=== PATIENT | male | born 1985 | race Hispanic/Latino ===

== ENCOUNTER 2025-03-18 15:39 | Emergency (ER) | payer OTHER ==
[~2025-03-18] VITALS: Ht 167.6 cm; Wt 61.2 kg
[2025-03-18] MEDS: ZIPRASIDONE MESYLATE 20 MG/VIAL IM ONE (16:45)
[2025-03-18 16:47] LABS: IMMATURE GRANULOCYTE ABSOLUTE 0.09 K/uL (0-1); NUCLEATED RED BLOOD CELLS 0.0 % (0.0-0.19); PLATELET COUNT (AUTO) 461 K/uL (130-400); RED BLOOD CELL COUNT(AUTO) 4.33 MIL/uL (4.50-6.20); RED CELL DISTRIBUTION WIDTH 13.4 % (11.0-15.5); WHITE BLOOD COUNT (AUTO) 18.1 K/uL (4.8-10.8)
[2025-03-18 16:57] LABS: CREATININE 1.1 mg/dL (0.5-1.3); GLOMERULAR FILTR. RATE CALC 88 mL/min (>90); GLUCOSE,RANDOM 124 mg/dL (70-105); SODIUM SERUM 142 mmol/L (136-145); UREA NITROGEN, BLOOD 9 mg/dL (7-18)
[2025-03-18 17:02] LABS: ALCOHOL, BLOOD 18 mg/dL (0-10); CREATINE KINASE, TOTAL 238 U/L (21-232)
[2025-03-18 17:29] LABS: ADD UA MICROSCOPIC YES; APPEARANCE,URINE CLEAR (CLEAR); GLUCOSE, URINE (UA) NEGATIVE (NEGATIVE); LEUKOCYTE ESTERASE ,URINE NEGATIVE Leu/uL (NEGATIVE); NITRATE,URINE NEGATIVE (NEGATIVE); OCCULT BLOOD,URINE NEGATIVE (NEGATIVE)
--- NOTE | 2025-03-18 17:32 | ERN ---
General Chief Complaint: Suicidal Ideation Stated Complaint: PSYCHOSIS AND SUICIDAL IDEATION Time Seen by MD: 15:42 Source: patient History of Present Illness Initial Comments Patient is a 39-year-old gentleman with a extensive psychiatric history coming in due to suicidal ideation. Per patient he does not have a plan but he is here for further evaluation. Allergies: Coded Allergies: No Known Drug Allergies (Unverified Allergy, Unknown, 03/18/25) Past Medical History Past Medical History: Schizophrenia Past Surgical History: None ROS Dictation CONSTITUTIONAL: No chills, no fever, no weakness, no diaphoresis, no malaise. HEAD/FACE: No signs of trauma. EENT: No eye pain, no blurred vision, no tearing, no double vision, no ear pain, no ear discharge, no nose pain, no nasal congestion, no throat pain, no throat swelling, no mouth pain. RESPIRATORY: No cough, no orthopnea, no SOB, no stridor, no wheezing. CARDIOVASCULAR: No chest pain, no edema, no palpitations, no syncope. GASTROINTESTINAL/ABDOMINAL: No abdominal pain, no constipation, no diarrhea, no nausea, no vomiting. GENITOURINARY: No abnormal discharge, no dysuria, no frequent urination, no hematuria. No complaints of pain in the genitals. MUSCULOSKELETAL: No back pain, no gout, no joint pain, no joint swelling, no muscle pain, no muscle stiffness, no neck pain. INTEGUMENTARY: No change in color, no change in hair/nails, no dryness, no lesion, no lumps, no rash. NEUROLOGICAL/PSYCH: No anxiety, not depressed, no emotional problem, no headache, no numbness, no pre-existing deficit, no history of seizures, no tremors, no weakness. HEMATOLOGIC/LYMPHATIC: Not anemic, no history of blood clots, no apparent bleeding, no bruising, glands not swollen. All Systems Negative, Except as Noted. Physical Exam Physical Exam Dictation VITAL SIGNS: Reviewed. GENERAL APPEARANCE: Alert, oriented x3, no acute distress, obese. HEAD AND FACE: Non-traumatic. EYES: PERRL, pink conjunctivas, eyelid no trauma, anterior chamber clear. EARS: Pinnas intact and no signs of trauma or erythema. Ear canals clear and no discharge. TMs no erythema. NOSE: No discharge, no bleeding. OROPHARYNX: Mouth normal, teeth no caries, tongue pink. Pharynx clear, no erythema. Tonsils no exudates, no abscesses noted. Mucous membrane moist. NECK: Supple, non-tender, no thyromegaly, no masses, no JVD, no bruits. BREAST: Deferred. CHEST: No tenderness, no crepitus, no paradoxical movement, no retractions. LUNGS: Clear, well-ventilated, symmetric, no rales, no wheezing, no rhonchi, no stridor, good breath sounds bilaterally. HEART: Regular rate, regular rhythm, no murmur, no gallops. VASCULAR: No peripheral edema. ABDOMEN: Soft, positive bowel sounds, nondistended, no guarding, nontender, no rebound, no masses no hepatomegaly, no splenomegaly, no Ledezma's sign, no hernias. RECTAL: Deferred. GENITAL: Deferred. NEUROLOGICAL: Normal speech, gross motor function intact, gross sensory function intact. MUSCULOSKELETAL: Neck nontender, full range of motion, back nontender, full range of motion. EXTREMITIES: Nontender, full range of motion. SKIN: Color pink, dry, no turgor, no rash, no lacerations, no abrasions, no contusions. LYMPHATICS: Deferred. Results Laboratory and Microbiology Lab and Micro Result Laboratory Tests Test 03/18/25 16:00 03/18/25 16:36 Urine Color LIGHT-YELLOW (YELLOW) Urine Appearance CLEAR (CLEAR) Urine pH 6.5 (5.0-8.0) Urine Specific [place] 1.016 (1.001-1.031) Urine Protein 10 mg/dL (NEGATIVE) H Urine Glucose (UA) NEGATIVE mg/dL (NEGATIVE) Urine Ketones NEGATIVE mg/dL (NEGATIVE) Urine Occult Blood NEGATIVE (NEGATIVE) Urine Nitrate NEGATIVE (NEGATIVE) Urine Bilirubin NEGATIVE mg/dL (NEGATIVE) Urine Urobilinogen 0.2 mg/dL (0.2-1.0) Urine Leukocyte Esterase NEGATIVE Rigoberto/uL Urine RBC 0-1 /HPF (0-1) Urine WBC 0-1 /HPF (0-1) Urine Squamous Epithelial Cells RARE /HPF (0-2) Urine Bacteria RARE /HPF (None Seen) Urine Opiates Screen NEGATIVE (NEGATIVE) Urine Barbiturates Screen NEGATIVE (NEGATIVE) Urine Phencyclidine Screen NEGATIVE (NEGATIVE) Urine Amphetamines Screen NEGATIVE (NEGATIVE) Urine Benzodiazepines Screen NEGATIVE (NEGATIVE) Urine Cocaine Screen POSITIVE (NEGATIVE) H Urine Marijuana (THC) Screen NEGATIVE (NEGATIVE) White Blood Count 18.1 K/uL (4.8-10.8) H Red Blood Count 4.33 MIL/uL (4.50-6.20) L Hemoglobin 12.4 g/dL (14.0-18.0) L Hematocrit 37.8 % (42-54) L Mean Corpuscular Volume 87.3 fL (79-99) Mean Corpuscular Hemoglobin 28.6 pg (27.0-33.0) Mean Corpuscular Hemoglobin Concent 32.8 g/dL (32.0-36.0) Red Cell Distribution Width 13.4 % (11.0-15.5) Platelet Count 461 K/uL (130-400) H Mean Platelet Volume 10.1 fL (7.5-10.5) Immature Granulocyte % (Auto) 0.5 % (0-1) Neutrophils (%) (Auto) 89.8 % (40.0-77.0) H Lymphocytes (%) (Auto) 4.5 % (21.0-51.0) L Monocytes (%) (Auto) 4.7 % (3.0-13.0) Eosinophils (%) (Auto) 0.2 % (0.0-8.0) Basophils (%) (Auto) 0.3 % (0.0-5.0) Neutrophils # (Auto) 16.3 K/uL (1.8-7.7) H Lymphocytes # (Auto) 0.8 K/uL (1.0-4.8) L Monocytes # (Auto) 0.9 K/uL (0.1-1.0) Eosinophils # (Auto) 0.03 K/uL (0.00-0.70) Basophils # (Auto) 0.05 K/uL (0.00-0.20) Absolute Immature Granulocyte (auto 0.09 K/uL (0-1) Nucleated Red Blood Cells 0.0 % (0.0-0.19) White Cell Morphology Comment See comments Sodium Level 142 mmol/L (136-145) Potassium Level 3.4 mmol/L (3.5-5.1) L Chloride Level 103 mmol/L (101-111) Carbon Dioxide Level 24 mmol/L (21-32) Blood Urea Nitrogen 9 mg/dL (7-18) Creatinine 1.1 mg/dL (0.5-1.3) Glomerular Filtration Rate Calc 88 mL/min (>90) Random Glucose 124 mg/dL (70-105) H Total Calcium 9.4 mg/dL (8.5-10.1) Total Creatine Kinase 238 U/L (21-232) H Salicylates Level 3.7 mg/dL (2.8-20.0) Acetaminophen Level < 1 mcg/mL (10-29) L Serum Alcohol 18 mg/dL (0-10) H Labs Reviewed?: Yes MDM I Assumed care at 7:00 p.m.- Wiliam Ma Differential diagnosis: Suicidal ideation, psychiatric illness, recreational drug abuse related psychosis This is a 39-year-old male who presented to the emergency room stating that he was hearing voices to hurt himself. Apparently EMS picked him up from the side of the road and brought him to the ER for further evaluation. This is a very poor historian Blood pressure is 146/84 pulse 125 respirations 20 temperature 98.2 with a pulse oximetry of 99% on room air Patient does have a history of substance abuse Labs reviewed BNP 7 showed a white count of 3.4 CBC showed a white count of 18.1 UDS is positive for cocaine and ETOH level was 18. Referral to behavioral health specialist given for evaluation. Patient was evaluated and deemed not to meet criteria for inpatient admission and patient has been given instructions by the behavioral health specialist and the care will be coordinated to address his issues. I updated the patient and answered all his questions. Rationale: Tests considered and ordered secondary to shared decision making include: Blood work Previous outside records reviewed: Old ER visits. Risk of complication and/or morbidity or mortality of patient management: None Medications-Per medication reconciliation Need for hospitalization: Patient does not meet criteria for hospitalization. Need for emergency major/minor surgery: No There are no social concerns with this patient. Prescription drug management Prescriptions will include symptomatic care Patient's prior external medical records from other ER visits were reviewed by me as indicated. Prior testing and results from previous visits were reviewed. Prior tests were taken into account with medical decision making and resource utilization, independent historian/historians were used to obtain complete medical history. I independently interpreted the test that were performed, results were reviewed by me and considered findings on radiology if ordered. Medical management and examination interpretation discussions were had by me with other qualified healthcare professionals as indicated for the patient's care. ED Course Orders Procedure Category Date Status Time Cbc With Differential LAB 03/18/25 Complete 15:43 Alcohol, Blood LAB 03/18/25 Complete 15:43 Salicylate LAB 03/18/25 Complete 15:43 Acetaminophen LAB 03/18/25 Complete 15:43 Urinalysis Profile LAB 03/18/25 Complete 15:43 Creatine Kinase, Total LAB 03/18/25 Complete 15:43 Basic Metabolic Panel LAB 03/18/25 Complete 15:43 Drug Screen Urine LAB 03/18/25 Complete 15:43 Ziprasidone Mesylate PHA 03/18/25 Complete (Geodon) 16:30 Ceftriaxone 1g Vial PHA 03/18/25 Complete (Rocephine 1g Inj) 18:00 Chest 1vw RAD 03/18/25 Resulted 17:55 Potassium Bicarb/Cit PHA 03/18/25 Complete Ac 25meq (K-Lyte Ta 20:00 Current Medications Medications (Trade) Dose Ordered Sig/Rich Route PRN Reason Start Time Stop Time Status Last Admin Dose Admin Ceftriaxone Sodium (ROCEphine 1G INJ) 1 gm ONCE ONCE IVPB 03/18/25 18:00 03/18/25 18:01 DC 03/18/25 18:08 Potassium Bicarbonate (K-Lyte Tablet Eff 25 Meq Tablet.eff) 25 meq ONCE ONCE PO 03/18/25 20:00 03/18/25 20:01 DC 03/18/25 20:04 Ziprasidone (Geodon) 10 mg ONCE ONCE IM 03/18/25 16:30 03/18/25 16:31 DC 03/18/25 16:45 Vital Signs Date Time Temp Pulse Resp B/P (MAP) Pulse Ox O2 Delivery O2 Flow Rate FiO2 03/18/25 22:05 98.2 80 16 110/63 99 Room Air* 0 03/18/25 18:30 98.2 83 16 100/61 96 Room Air* 0 03/18/25 17:20 105 20 119/75 96 Room Air* 0 03/18/25 15:47 98.2 125 20 146/84 99 Room Air DX & DISP Disposition: Discharge Departure Impression: Primary Impression: Suicidal ideation Additional Impressions: Cocaine abuse, Hypokalemia Condition: Stable Additional Instructions: Patient and the caregiver have been informed of all the diagnostic tests and the imaging conducted during the today's visit to the emergency room and has verbalized understanding of the results I have personally reviewed and interpreted all diagnostic exams performed here in the ER today as well as the vital signs documented by the nursing staff. The patient is now being discharged to home and should follow up with the primary care physician or the specialist as directed by the ER staff. Patient has been evaluated by behavioral health specialist and cleared for discharge. A plan for follow-up with the behavioral unit and all instructions were given to the patient. They deemed that the patient did not meet criteria for inpatient stabilization. I extensively counseled him on lifestyle modifications and abstinence of recreational drugs and diligent follow up with the behavioral health unit and they will be calling him. BALTAZAR ZHOU MD Mar 18, 2025 17:32 BELKIS BENTON MD Mar 18, 2025 21:57
[2025-03-18 17:36] LABS: SQUAMOUS EPITHELIAL CELL,UR RARE /HPF (0-2)
[2025-03-18 17:37] LABS: AMPHET/METH SCREEN,URINE NEGATIVE (NEGATIVE); BARBITURATE SCREEN, URINE NEGATIVE (NEGATIVE); CANNABINOID SCREEN,URINE NEGATIVE (NEGATIVE); COCAINE SCREEN,URINE POSITIVE (NEGATIVE)
--- NOTE | 2025-03-18 18:21 | NUR ---
[facility] WAS CALLED AT THIS TIME. PER JORDY, THEY WILL SEND OUT LOCAL SCREENER TO MAKE CONTACT SOON POSSIBLE.
--- NOTE | 2025-03-18 19:01 | HMCIMG ---
EXAM: CR Chest, 1 View. CLINICAL HISTORY: sob COMPARISON: None provided. FINDINGS: LUNGS: Bibasilar airspace disease may reflect an infectious and/or inflammatory process. PLEURAL SPACES: No pleural effusion or pneumothorax. MEDIASTINUM: The cardiomediastinal silhouette is within normal limits. BONES: No aggressive appearing osseous lesion seen. IMPRESSION: 1. Bibasilar airspace disease, possibly representing infection or inflammation. /[place]
--- NOTE | 2025-03-18 19:18 | NUR ---
SCREENER AT BEDSIDE
--- NOTE | 2025-03-18 21:00 | NUR ---
PER SCREENER, PT DOES NOT MEET CRITERIA FOR ADMISSION. PT WILL BE FOLLOWED UP WITH AT HOME. PT WILL BE REFERRED TO [facility]ST[facility]BUSE [facility]IST[facility] ON THURSDAY VIA [facility].
[2025-03-18 22:05] VITALS: BP 110/63; PULSE 80; RESP 16; TEMP 98.2; O2SAT 99
== END 2025-03-18 22:08 | disposition home or self-care (01) ==
LOC: EDH 15:39
DX: R45.851 Suicidal ideations (principal); F14.10 Cocaine abuse, uncomplicated; E87.6 Hypokalemia; F20.9 Schizophrenia, unspecified
CPT/HCPCS: 99284; 96374; 71045; 82550; 80048; 80305; 85025; 36415; 81001; 96372; G0481; J0696; J3486